=== PATIENT | female | born 1975 | race American Indian/Alaskan Native ===

== ENCOUNTER 2017-06-11 17:58 | Inpatient (IN) | payer MEDICAID, OTHER ==
--- NOTE | 2017-06-11 18:39 | C.PDOC ---
History Of Present Illness 41-year-old female, whose PMHx includes HIV and Asthma, presents to the emergency department requesting detox from alcohol (drinks a pint, and 5-6 beers a day) Cocaine and Percocet. Patient denies IVDA. States her last substance use was yesterday. Her last drink was today. Patient also complains of mild abdominal pain. Of note, patient finished detox in 2006, and her last CD4 count was undetectable. Time Seen by Provider: 06/11/17 18:10 Chief Complaint (Nursing): Substance Abuse History Per: Patient History/Exam Limitations: no limitations Past Medical History Reviewed: Historical Data, Nursing Documentation, Vital Signs Vital Signs: Last Vital Signs Temp 98.4 F 06/11/17 21:33 Pulse 77 06/11/17 21:33 Resp 18 06/11/17 21:33 BP 105/68 06/11/17 21:33 Pulse Ox 100 06/11/17 21:33 - Medical History PMH: Asthma, HIV Surgical History: No Surg Hx Family History: States: No Known Family Hx - Social History Hx Tobacco Use: No Hx Alcohol Use: Yes Hx Substance Use: Yes - Immunization History Hx Tetanus Toxoid Vaccination: Yes Hx Influenza Vaccination: Yes Hx Pneumococcal Vaccination: Yes Review Of Systems Except As Marked, All Systems Reviewed And Found Negative. Constitutional: Negative for: Fever, Chills, Weakness Respiratory: Negative for: Shortness of Breath Gastrointestinal: Positive for: Abdominal Pain. Negative for: Nausea, Vomiting Musculoskeletal: Negative for: Back Pain Neurological: Negative for: Weakness, Numbness, Headache, Dizziness Physical Exam - Physical Exam Appears: Non-toxic, No Acute Distress Skin: Warm, Dry, No Rash Head: Atraumatic, Normacephalic Eye(s): bilateral: Normal Inspection, PERRL Nose: Normal Oral Mucosa: Moist Lips: Normal Appearing Neck: Normal ROM Chest: Symmetrical Cardiovascular: Rhythm Regular, No Murmur Respiratory: Normal Breath Sounds, No Accessory Muscle Use Gastrointestinal/Abdominal: Soft, No Tenderness Extremity: Normal ROM Neurological/Psych: Oriented x3 ED Course And Treatment - Laboratory Results Result Diagrams: 06/11/17 18:43 06/11/17 18:43 Lab Interpretation: Abnormal (ETOH 72, UDS + cocaine, UA +nitrates) O2 Sat by Pulse Oximetry: 97 (on RA) Pulse Ox Interpretation: Normal Progress Note: EtOH Serum, CMP, UDS and CMP ordered and reviewed. Patient treated with Macrobid in ED. She is medically cleared for admission to detox. Urine culture has been ordered and she should be treated for UTI while admitted. Disposition - Disposition Disposition: HOSPITALIZED Disposition Time: 22:17 Condition: STABLE - POA Present On Arrival: None - Clinical Impression Clinical Impression: Alcohol dependence, UTI (urinary tract infection) - Scribe Statement The provider has reviewed the documentation as recorded by the Scribe (Lois Henderson) All medical record entries made by the Scribe were at my direction and personally dictated by me. I have reviewed the chart and agree that the record accurately reflects my personal performance of the history, physical exam, medical decision making, and the department course for this patient. I have also personally directed, reviewed, and agree with the discharge instructions and disposition.
[2017-06-11 18:52] LABS: BASO % 0.5 % (0.0-2.0); EOS % 0.3 % (0.0-4.0); HCG,QUALITATIVE URINE NEGATIVE (NEGATIVE); LYMPH # 1.2 K/uL (1.0-4.3); LYMPH % 15.2 % (20.0-40.0); MEAN CELL VOLUME 89.8 fL (81.0-99.0); MEAN CORPUSCULAR HEMOGLOBIN 30.2 pg (27.0-31.0); MEAN CORPUSCULAR HGB CONC 33.6 g/dL (33.0-37.0); MEAN PLATELET VOLUME 9.4 fL (7.2-11.7); MONO # 0.7 K/uL (0.0-0.8); MONO % 8.6 % (0.0-10.0); NEUT # 6.2 K/uL (1.8-7.0); NEUT % 75.4 % (50.0-75.0); RBC 4.64 Mil/uL (3.80-5.20); RED CELL DISTRIBUTION WIDTH 13.8 % (11.5-14.5); WHITE BLOOD COUNT 8.2 K/uL (4.8-10.8)
[2017-06-11 18:59] LABS: SQUAMOUS EPITHIAL 12 /hpf (0-5); URINE BACTERIA FEW (<OCC); URINE BILIRUBIN NEGATIVE (NEGATIVE); URINE BLOOD NEGATIVE (NEGATIVE); URINE CLARITY Hazy (Clear); URINE COLOR Yellow (YELLOW); URINE GLUCOSE (UA) NORMAL (Normal); URINE LEUKOCYTE ESTERASE TRACE Leu/uL (Negative); URINE NITRATE POSITIVE (NEGATIVE); URINE PROTEIN NEGATIVE (NEGATIVE); URINE UROBILINOGEN NORMAL mg/dL (0.2-1.0)
[2017-06-11 19:00] LABS: ALBUMIN 4.1 g/dL (3.5-5.0); ALT/SGPT 30 U/L (9-52); AST/SGOT 41 U/L (14-36); BLOOD UREA NITROGEN 7 mg/dL (7-17); CALCIUM 8.5 mg/dl (8.6-10.4); GFR AFRICAN-AMERICAN > 60; GFR NON-AFRICAN AMERICAN > 60
[2017-06-11 19:05] LABS: BARBITURATES, UR NEGATIVE (NEGATIVE); BENZODIAZEPINES, UR NEGATIVE (NEGATIVE); OPIATES, UR NEGATIVE (NEGATIVE); PHENCYCLIDINE, UR NEGATIVE (NEGATIVE)
--- NOTE | 2017-06-12 06:32 | PCM.BM ---
Treatment Plan Problems - Problems identified on initial assessmt Alcohol Dependence Date Initiated: 06/11/17 Time Initiated: 23:30 Assessment reference: NA Status: Active Opiate Dependence Date Initiated: 06/11/17 Time Initiated: 23:30 Assessment reference: NA Status: Active Treatment assets and liabiliti Patient Assests: ADL independent Patient Liabilities: substance abuse, medical problems - Milieu Protocol Maintain good personal hygiene: daily Encourage regular showers, daily Remind patient to perform daily oral care, daily Assist patient to perform ADL's Maintain personal safety: every shift Educate patient to report safety concerns to staff, every shift Monitor environment for contraband/sharps Medication safety: Monitor for expected outcome, potential side effects: every shift, Assess barriers to learning: every shift, Assess readiness for medication education: every shift
[2017-06-12] MEDS: Multiple Vitamins Tab PO SCH (11:12)
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
[2017-06-12] MEDS: Efavirenz/Emtricitabine/Teno 1 TAB PO SCH (21:22)
[2017-06-13] MEDS: Multiple Vitamins Tab PO SCH (09:20)
--- NOTE | 2017-06-13 13:19 | PCM.PYCHPN ---
Psychiatric Progress Note - Psychiatric Progress Note Patient seen today, length of contact: 15 minutes Patient Chief Complaint: "I'm doing better" Problems Identified/Issues Discussed: The pt was seen and evaluated. Chart reviewed. Pt reproted improvement in her UTI symptoms. per chart review she had received only one dose of Librium 25 mg po last night. Currently pt denied alcohol withdrawal symptoms. She denied opioid withdrawal symptoms. The pt reported improvement in her sleep, appetite. Pt is compliant with medication and denied side effects. Will monitor the symptoms. If pt did not reported any withdrawal symptoms than, she will be discharge tomorrow. After care discussed, support and psychoeducation given. Medical Problems: UTI Diagnostic Results: lab reviewed DSM 5 Symptoms Update: Alcohol use disorder, severe, dependence, cocaine use disorder Medication Change: No Medical Record Reviewed: Yes Mental Status Examination - Cognitive Function Orientation: Person, Place, Situation, Time Memory: Intact Attention: WNL Concentration: WNL Association: [facility] Fund of Knowledge: [facility] Decription of patient's judgement and insights: fair/fair Addtional comments: Pt is calm and cooperative - Mood Mood: Neutral - Affect Affect: Constricted - Speech Speech: Appropriate - Formal Thought Process Formal Thought Process: No Impairment Psychotic Thoughts and Behaviors: denied - Suicidal Ideation Suicidal Ideation: No Plan: denied - Homicidal Ideation Homicidal Ideation: No Plan: denied Goal/Treatment Plan - Goal/Treatment Plan Need for Continued Stay: Discharge may exacerbated symptoms, Severe functional impairment Progress Toward Problem(s) and Goals/Treatment Plan: Continue current management and medications. Patient educated about risks, benefits, side effects & alternatives of meds. Pt verbalized understanding & agreed with the above.~ Therapy in milieu. Monitor etoh withdrawal symptoms. If pt had no alcohol withdrawal symptoms today then she will be discharge tomorrow. Estimated Date of D/C: 06/15/17 - Smoking Cessation Smoking Cessation Initiated: Yes
[2017-06-13] MEDS: Efavirenz/Emtricitabine/Teno 1 TAB PO SCH (21:16)
[2017-06-14] MEDS: Multiple Vitamins Tab PO SCH (09:17)
[2017-06-14] MEDS: Efavirenz/Emtricitabine/Teno 1 TAB PO SCH (21:41)
[2017-06-15 06:28] VITALS: BP 104/54; RESP 20
[2017-06-15] MEDS: Multiple Vitamins Tab PO SCH (09:09)
[2017-06-15 10:06] VITALS: PULSE 79; TEMP 98.2; O2SAT 100
--- NOTE | 2017-06-16 08:56 | PCM.PYCHPN ---
Psychiatric Progress Note - Psychiatric Progress Note Patient seen today, length of contact: 15 minutes Patient Chief Complaint: IF I GO HOME NOW I AM GOING TO USE Problems Identified/Issues Discussed: DISCUSSED WHAT SHE CAN DO TO STAY SOBER, SUGGESTED GOING TO RELATIVE OR FRIEND; S HOME POST ACUTE WITHDRAWAL SYNDROME Medical Problems: NOTHING ACUTE Diagnostic Results: REVIEWED DSM 5 Symptoms Update: ANXIOUS IRRITABLE Medication Change: No Medical Record Reviewed: Yes Mental Status Examination - Cognitive Function Orientation: Person, Place, Time Memory: Intact Attention: WNL Association: WNL Fund of Knowledge: WNL - Mood Mood: Neutral - Affect Affect: Broad, Constricted - Speech Speech: Appropriate - Formal Thought Process Formal Thought Process: No Impairment - Suicidal Ideation Suicidal Ideation: No - Homicidal Ideation Homicidal Ideation: No Goal/Treatment Plan - Goal/Treatment Plan Need for Continued Stay: Discharge may exacerbated symptoms, Severe functional impairment Progress Toward Problem(s) and Goals/Treatment Plan: OPIOID WITHDRAWAL SUBUTEX TAPER ALCOHOL WITHDRAWAL LIBRIUM TAPER OPIOID USE DISORDER GROUP [facility] CBT DC SUPPORTIVE PSYCHOTHERAPY ALCOHOL USE DISORDER GROUP MILIEU RECREATIONAL THERAPY DC CNT SUUPPORTIVE PSYCHOTHERAPY Estimated Date of D/C: 06/15/17 - Smoking Cessation Smoking Cessation Initiated: Yes
== END 2017-06-15 10:30 | disposition home or self-care (01) | DRG 715 ==
LOC: C.ER 17:58 → C.7D 22:16
PROVIDERS: ADMIT Psychiatry & Neurology Psychiatry; ATTEND Psychiatry & Neurology Psychiatry
PROC: HZ2ZZZZ Detoxification Services for Substance Abuse Treatment (ICD-10-PCS; principal; 2017-06-11)
PROC: HZ46ZZZ Group Counseling for Substance Abuse Treatment, Psychoeducation (ICD-10-PCS; 2017-06-11)
PROC: HZ59ZZZ Individual Psychotherapy for Substance Abuse Treatment, Supportive (ICD-10-PCS; 2017-06-11)
DX: F10.230 Alcohol dependence with withdrawal, uncomplicated (principal); F11.20 Opioid dependence, uncomplicated; F14.20 Cocaine dependence, uncomplicated; B20 Human immunodeficiency virus [HIV] disease; N39.0 Urinary tract infection, site not specified; Y90.3 Blood alcohol level of 60-79 mg/100 ml; J45.909 Unspecified asthma, uncomplicated; Z59.0 Homelessness; Z91.410 Personal history of adult physical and sexual abuse

== ENCOUNTER 2017-10-31 18:06 | Inpatient (IN) | payer MEDICAID ==
[2017-10-31 19:04] LABS: BASO # 0.1 K/uL (0.0-0.2); EOS # 0.1 K/uL (0.0-0.7); EOS % 2.3 % (0.0-4.0); HEMOGLOBIN 12.6 g/dL (11.0-16.0); LYMPH # 1.6 K/uL (1.0-4.3); LYMPH % 24.4 % (20.0-40.0); MEAN CELL VOLUME 88.8 fL (81.0-99.0); MEAN CORPUSCULAR HEMOGLOBIN 30.4 pg (27.0-31.0); MEAN CORPUSCULAR HGB CONC 34.2 g/dL (33.0-37.0); MEAN PLATELET VOLUME 9.7 fL (7.2-11.7); MONO # 0.6 K/uL (0.0-0.8); MONO % 9.6 % (0.0-10.0); NEUT % 62.7 % (50.0-75.0); NRBC % 0.1 % (0.0-2.0); RBC 4.14 Mil/uL (3.80-5.20); WHITE BLOOD COUNT 6.4 K/uL (4.8-10.8)
[2017-10-31 19:09] LABS: HCG,QUALITATIVE URINE NEGATIVE (NEGATIVE); SQUAMOUS EPITHIAL 19 /hpf (0-5); URINE BACTERIA FEW (<OCC); URINE BILIRUBIN NEGATIVE (NEGATIVE); URINE BLOOD NEGATIVE (NEGATIVE); URINE CLARITY Hazy (Clear); URINE COLOR Yellow (YELLOW); URINE GLUCOSE (UA) NORMAL (Normal); URINE LEUKOCYTE ESTERASE 2+ Leu/uL (Negative); URINE PROTEIN NEGATIVE (NEGATIVE)
[2017-10-31 19:17] LABS: ALB/GLOB RATIO 0.9 (1.0-2.1); ALBUMIN 3.9 g/dL (3.5-5.0); ALT/SGPT 21 U/L (9-52); AST/SGOT 27 U/L (14-36); BLOOD UREA NITROGEN 10 mg/dL (7-17); CALCIUM 8.6 mg/dl (8.6-10.4); GFR AFRICAN-AMERICAN > 60; GFR NON-AFRICAN AMERICAN > 60
--- NOTE | 2017-10-31 19:18 | C.PDOC ---
History Of Present Illness 41 year old female with a Hx of ETOH and drug abuse presents to the ER requesting detox. Patient also notes she is HIV+. Denies physical complaints at this time. Chief Complaint (Nursing): Substance Abuse History Per: Patient History/Exam Limitations: no limitations Onset/Duration Of Symptoms: Hrs Current Symptoms Are (Timing): Still Present Suicide/Self Injury Attempted (Context): None Modifying Factor(s): Alcohol, Marijuana, Cocaine Associated Symptoms: denies: Depression, Suicidal Thoughts Involuntary Hold By: None Recent travel outside of the [place]: No Past Medical History Reviewed: Historical Data, Nursing Documentation, Vital Signs Vital Signs: Last Vital Signs Temp 99.1 F 10/31/17 18:28 Pulse 91 H 10/31/17 18:28 Resp 16 10/31/17 18:28 BP 148/79 10/31/17 18:28 Pulse Ox 99 10/31/17 20:14 - Medical History PMH: Asthma, HIV - [facility] DETOXIFICATION SERVICES FOR SUBSTANCE ABUSE TREATMENT (06/11/17) GROUP BEARING GRINDER FOR SUBSTANCE ABUSE TREATMENT, PSYCHOEDUCATION (06/11/17) INDIV PSYCHOTHERAPY FOR SUBSTANCE ABUSE TREATMENT, SUPPORT (06/11/17) Family History: States: Unknown Family Hx - Social History Hx Tobacco Use: No Hx Alcohol Use: Yes Hx Substance Use: Yes - Immunization History Hx Tetanus Toxoid Vaccination: Yes Hx Influenza Vaccination: Yes Hx Pneumococcal Vaccination: Yes Review Of Systems Constitutional: Negative for: Fever, Chills Cardiovascular: Negative for: Chest Pain, Palpitations Respiratory: Negative for: Cough, Shortness of Breath Gastrointestinal: Negative for: Nausea, Vomiting, Abdominal Pain Psych: Negative for: Depression, Suicidal ideation Physical Exam - Physical Exam Appears: Non-toxic, No Acute Distress Skin: Normal Color, Warm, Dry Head: Atraumatic, Normacephalic Eye(s): bilateral: Normal Inspection Oral Mucosa: Moist Chest: Symmetrical, No Tenderness Cardiovascular: Rhythm Regular Respiratory: Normal Breath Sounds, No Rales, No Rhonchi, No Wheezing Gastrointestinal/Abdominal: Soft, No Tenderness Neurological/Psych: Oriented x3, Normal Speech ED Course And Treatment - Laboratory Results Result Diagrams: 10/31/17 19:01 10/31/17 19:01 O2 Sat by Pulse Oximetry: 99 (Room air) Pulse Ox Interpretation: Normal Progress Note: Blood work and urinalysis ordered. Crisis notified. Disposition Discussed With : Jadyn Grace Doctor Will See Patient In The: Hospital Counseled Patient/Family Regarding: Diagnosis - Disposition Disposition: HOSPITALIZED Disposition Time: 20:10 Condition: STABLE Forms: [facility] (Telugu) - POA Present On Arrival: None - Clinical Impression Clinical Impression: Drug dependence, Alcohol dependence, UTI (urinary tract infection) - Scribe Statement The provider has reviewed the documentation as recorded by the Scribe David Alvares All medical record entries made by the Marcus[place]burton were at my direction and personally dictated by me. I have reviewed the chart and agree that the record accurately reflects my personal performance of the history, physical exam, medical decision making, and the department course for this patient. I have also personally directed, reviewed, and agree with the discharge instructions and disposition.
[2017-10-31 19:22] LABS: BARBITURATES, UR NEGATIVE (NEGATIVE); BENZODIAZEPINES, UR NEGATIVE (NEGATIVE); OPIATES, UR NEGATIVE (NEGATIVE); PHENCYCLIDINE, UR NEGATIVE (NEGATIVE)
--- NOTE | 2017-10-31 20:36 | PCM.BM ---
Treatment Plan Problems - Problems identified on initial assessmt potiential for autonomic instability related to alcohol withdrawal Date Initiated: 10/31/17 Time Initiated: 20:36 Assessment reference: NA Status: Active Treatment assets and liabiliti Patient Assests: ADL independent, negotiates basic needs Patient Liabilities: substance abuse, medical problems - Milieu Protocol Maintain good personal hygiene: daily Encourage regular showers, daily Remind patient to perform daily oral care, daily Assist patient to perform ADL's Maintain personal safety: every shift Educate patient to report safety concerns to staff, every shift Monitor environment for contraband/sharps Medication safety: Monitor for expected outcome, potential side effects: every shift, Assess barriers to learning: every shift, Assess readiness for medication education: every shift
[2017-11-01] MEDS: Multiple Vitamins Tab PO SCH (09:51)
[2017-11-01] MEDS: Efavirenz/Emtricitabine/Teno 1 TAB PO SCH (10:39)
[2017-11-01] MEDS ORDERED: Albuterol HFA 90 mcg/actuation (8 g) INH PRN (15:57)
[2017-11-01] MEDS: Albuterol-Ipratrop 3 mg / 0.5 (3 ml) UD INH PRN (16:42)
--- NOTE | 2017-11-01 18:22 | PCM.PSYCH ---
Initial Psychiatric Evaluation - Initial Psychiatric Evaluation Type of Admission: Voluntary Legal Status: Capacity Chief Complaint (in patient's own words): "I have alcohol withdrawal symptoms" History of Present Illness and Precipitating Events: This is a 41 years old -L[place]ian female who was admitted for alcohol detox. Patient is a poor historian. Pt is homeless. She has some social support from her aunt. Pt was admitted to detox unit in 05/2017. Pt has a long history of etoh use. Patient was admitted and had a detox and rehabilitation [facility] in 2006. Patient stated she started drinking alcohol at the age of 15. Patient stated that she is drink 24 ounces of 6 cans of beers and 1 pint of vodka daily. Patient reported when she is not able to obtain alcohol she had the withdrawal symptoms. The patient denied any alcohol withdrawal symptoms including nausea vomiting increases in the heart wrist tremors shakiness, etc. Patient reported her drug of choice is crack cocaine. Additionally, she stated that she start using crack at the age of 15 and using on a daily basis. Patient reported she had multiple detox in the past. Last detox was in 2006. She had a rehabilitation for one year and [facility] from [id number]. Patient denied pain meds. urine toxicology was positive for cocaine and cannabis She denied a psychiatric symptom of depression and anxiety. Additionally, she denied manic symptoms and perceptual disturbances. Patient denied any suicide attempt in the past. She denied any problem in sleep and appetite. Social history: Patient is single, has no children. She has unstable housing. She has some social support from the mother and aunt. She had reading disability , she had completed ninth grade with special education classes. Past medical history: HIV, asthma, UTI Patient stated she is compliant with her HIV treatment and receiving the treatment from Dr. Ok Ybarra at [facility]. Current Medications: Active Medications Generic Name Dose Route Start Last Admin Trade Name Freq PRN Reason Stop Dose Admin Albuterol 1 puff 11/01/17 15:57 11/01/17 16:16 Ventolin Hfa 90 Mcg/Actuation (8 G) INH 1 puff RQ6 PRN Administration Shortness of Breath Albuterol/Ipratropium 3 ml 11/01/17 16:04 11/01/17 16:42 Duoneb 3 Mg/0.5 Mg (3 Ml) Ud INH 3 ml RQ6 PRN Administration WHEEZING Chlordiazepoxide 25 mg 11/01/17 13:13 11/01/17 13:27 Librium PO 25 mg Q4H PRN Administration Alcohol Withdrawal Clonidine HCl 0.1 mg 10/31/17 20:54 Catapres PO Q4H PRN Symptoms of alcohol withdrawl Efavirenz/Emtricitabine/Tenofovir 1 tab 11/01/17 10:00 11/01/17 10:39 Atripla 600 Mg-200 Mg-300 Mg PO 1 tab DAILY JIM Administration Protocol Folic Acid 1 mg 11/01/17 10:00 11/01/17 09:51 Folic Acid PO 1 mg DAILY JIM Administration Hydroxyzine HCl 25 mg 10/31/17 20:57 11/01/17 18:08 Atarax PO 25 mg Q6H PRN Administration Anxiety Ibuprofen 600 mg 11/01/17 11:50 11/01/17 18:08 Motrin Tab PO 600 mg Q6H PRN Administration Pain, moderate (4-7) Multivitamins 1 tab 11/01/17 10:00 11/01/17 09:51 Hexavitamin PO 1 tab DAILY JIM Administration Nitrofurantoin Macrocrystals 100 mg 11/01/17 21:00 Macrobid PO Q12H JIM Protocol Thiamine HCl 100 mg 11/01/17 10:00 11/01/17 09:51 Vitamin B1 Tab PO 100 mg DAILY JIM Administration Trazodone HCl 50 mg 10/31/17 20:54 Desyrel PO HS PRN Insomnia HIV, Asthma, uti Past Psychiatric History - Past Psychiatric History Previous Treatment History: Inpatient At [facility] hospital: [facility] Explanation of prior treatment: she had received detox treatment at [facility] History of Abuse: denied History of ETOH/Drug Use: please see HPI History of Family Illness: denied Pertinent Medical Hx (Current Medical&Sleep Prob, Allergies): Allergies Allergy/AdvReac Type Severity Reaction Status Date / Time ciprofloxacin [From Cipro] Allergy RASH Verified 10/31/17 18:28 Bupropion HCl [Bupropion HCl Xl] 150 mg PO DAILY 10/31/17 Cefdinir [Omnicef] 300 mg PO DAILY 10/31/17 Nitrofurantoin Macrocrystal [Nitrofurantoin Macrocrystals] 100 mg PO BID Review of Systems - Review of Systems All systems: reviewed and no additional remarkable complaints except - Constitutional Constitutional: Sweats, Weakness - EENT Eyes: UNREMARKABLE Ears: UNREMARKABLE Nose/Mouth/Throat: Nasal Congestion, Nasal Discharge - Breasts Breasts: UNREMARKABLE - Cardiovascular Cardiovascular: UNREMARKABLE - Respiratory Respiratory: UNREMARKABLE - Gastrointestinal Gastrointestinal: Nausea - Genitourinary Genitourinary: UNREMARKABLE - Reproductive: Female Reproductive:Female: UNREMARKABLE - Menstruation Menstruation: UNREMARKABLE - Musculoskeletal Musculoskeletal: Myalgias - Integumentary Integumentary: UNREMARKABLE - Neurological Neurological: UNREMARKABLE - Psychiatric Psychiatric: As Per HPI - Endocrine Endocrine: UNREMARKABLE - Hematologic/Lymphatic Hematologic: UNREMARKABLE Mental Status Examination - Personal Presentation Personal Presentation: Looks stated age, Dressed appropriate to season - Affect Affect: Constricted - Motor Activity Motor Activity: Calm - Reliability in Providing Information Reliability in Providing Information: Good - Speech Speech: Organized - Mood Mood: Anxious - Formal Thought Process Formal Thought Process: No Impairment - Hallucinations/Delusions Hallucinations: Other (denied) Delusions: Other (denied) - Obsessions/Compulsions Obsessions: None - Cognitive Functions Orientation: Person, Place, Situation, Time Sensorium: Alert Attention/Concentration: Attentive Abstract Thinking: [place] Estimate of Intelligence: Average Judgement: Intact, as evidence by: Good judgement, Intact, as evidence by: Insight regarding need for hospitalization Memory: Recent intact, as evidence by: Ability to recall events of the day - Risk Risk: Withdrawal - Strength & Assets Inventory Strength & Assets Inventory: Family support, Education, Cooperative, Other - Limitations Limitations: Other (chronic drugs and drinking etoh) DSM 5 DX - DSM 5 DSM 5 Diagnosis: Etoh use disorder, severe ETOH dependence Alcohol withdrawal symptoms cocaine use disorder UTI - Recommended/Plan of Treatment Treatment Recommendations and Plan of Treatment: Librium detox Gabapentin for augmentation As needed meds and vitamins Attend groups and activities [place] for abstinence and CBT for relapse prevention Support and psychoeducation Consider and encourage MAT~ Refer to after care 33 min Projected ELOS: 5 DAYS Prognosis: GOOD Discharge Plan and Discharge Criteria: REFER TO AFTER CARE PLAN
[2017-11-02] MEDS: Multiple Vitamins Tab PO SCH (09:27)
[2017-11-02] MEDS: Efavirenz/Emtricitabine/Teno 1 TAB PO SCH (09:50)
--- NOTE | 2017-11-02 10:31 | RAD ---
HISTORY: Discharge instructions COMPARISON: Comparison is made with 08/23/2015 TECHNIQUE: Chest PA and lateral FINDINGS: LUNGS: No active pulmonary disease. PLEURA: No significant pleural effusion identified. No pneumothorax apparent. CARDIOVASCULAR: Normal. OSSEOUS STRUCTURES: No significant abnormalities. VISUALIZED UPPER ABDOMEN: Normal. OTHER FINDINGS: None. IMPRESSION: No active disease. No significant interval change.
[2017-11-02 13:11] VITALS: RESP 18
--- NOTE | 2017-11-02 15:18 | PCM.PYCHPN ---
Psychiatric Progress Note - Psychiatric Progress Note Patient seen today, length of contact: 16 minutes Patient Chief Complaint: "I'm fine" Medical Problems: Pt was seen and evaluated. Chart reviewed. Nurse input received. Pt stated that she is feeling better. She reproted improvement in her withdrawal symptoms. Pt is improving but still needs more time for improvement. Pt is compliant with meds and denied side effects. DSM 5 Symptoms Update: Alcohol dependence, severe, Alcohol use disorder Alcohol withdrawal Medication Change: Yes (Librium taper) Medical Record Reviewed: Yes Mental Status Examination - Cognitive Function Orientation: Person, Place, Situation, Time Memory: Intact Attention: WNL Concentration: WNL Association: [facility] Fund of Knowledge: [facility] Decription of patient's judgement and insights: good/good Addtional comments: cooperative - Mood Mood: Anxious - Affect Affect: Constricted - Speech Speech: Appropriate - Formal Thought Process Formal Thought Process: No Impairment Psychotic Thoughts and Behaviors: denied - Suicidal Ideation Suicidal Ideation: No Plan: denied - Homicidal Ideation Homicidal Ideation: No Plan: denied Goal/Treatment Plan - Goal/Treatment Plan Need for Continued Stay: Discharge may exacerbated symptoms Progress Toward Problem(s) and Goals/Treatment Plan: Librium detox Gabapentin for augmentation As needed meds and vitamins Attend groups and activities [place] for abstinence and CBT for relapse prevention Support and psychoeducation Consider and encourage MAT Estimated Date of D/C: 11/05/17 - Smoking Cessation Smoking Cessation Initiated: Yes
[2017-11-02] MEDS: Albuterol-Ipratrop 3 mg / 0.5 (3 ml) UD INH PRN (16:05)
[2017-11-03] MEDS: Efavirenz/Emtricitabine/Teno 1 TAB PO SCH (09:14)
[2017-11-03] MEDS: Multiple Vitamins Tab PO SCH (09:14)
[2017-11-03 11:12] VITALS: BP 90/63; PULSE 79; TEMP 98.6; O2SAT 100
--- NOTE | 2017-11-03 13:20 | PCM.PYCHDC ---
Mental Status Examination - Mental Status Examination Orientation: Person Discharge Summary - Discharge Note Consultations:: List each consultation separately and include: 1. Reason for request. 2. Findings. 3. Follow-up Summary of Hospital Course include:: 1. Description of specific treatment plan utilized for patients during their course of treatmen. 2. Summarize the time- course for resolution of acute symptoms and/or regressed behaviors. 3. Describe issues identified and worked on during hospitalization. 4. Describe medication utilized. 5. Describe medical problems identified and treated. 6. Reassessment of suicide risk - Final Diagnosis (DSM 5) Condition upon Discharge: STABLE Disposition: HOME/ ROUTINE Prescriptions/Medication Reconciliation: Albuterol HFA [Ventolin HFA 90 mcg/actuation (8 g)] 1 puff INH RQ6 PRN #1 inhaler PRN Reason: Shortness Of Breath Nitrofurantoin Macrocrystals [Macrobid] 100 mg PO Q12H #8 cap traZODone [Desyrel] 50 mg PO HS PRN #30 tab PRN Reason: Insomnia
== END 2017-11-03 12:45 | disposition home or self-care (01) | DRG 715 ==
LOC: C.ER 18:06 → C.7D 20:11
PROVIDERS: ADMIT Psychiatry & Neurology Psychiatry; ATTEND Psychiatry & Neurology Psychiatry
PROC: HZ2ZZZZ Detoxification Services for Substance Abuse Treatment (ICD-10-PCS; principal; 2017-10-31)
PROC: HZ52ZZZ Individual Psychotherapy for Substance Abuse Treatment, Cognitive-Behavioral (ICD-10-PCS; 2017-10-31)
PROC: HZ59ZZZ Individual Psychotherapy for Substance Abuse Treatment, Supportive (ICD-10-PCS; 2017-10-31)
PROC: HZ56ZZZ Individual Psychotherapy for Substance Abuse Treatment, Psychoeducation (ICD-10-PCS; 2017-10-31)
DX: F10.239 Alcohol dependence with withdrawal, unspecified (principal); Z21 Asymptomatic human immunodeficiency virus [HIV] infection status; N39.0 Urinary tract infection, site not specified; F14.10 Cocaine abuse, uncomplicated; J45.909 Unspecified asthma, uncomplicated; Z59.0 Homelessness